=== PATIENT | male | born 1950 | race Caucasian/White ===

== ENCOUNTER 2019-02-12 15:25 | Emergency (ER) | payer MEDICARE ==
[2019-02-12 15:44] VITALS: BP 144/71
--- NOTE | 2019-02-12 16:13 | UC ---
Skin Complaint HPI - HPI Summary HPI Summary: 68 yo male had had a red area on his right calf that has progressively increased in size x weeks Inintially thought it was an insect bite no itching Yesterday he was seen by his primary care provider and started on augmentin for cellulitis This AM he developed fever and chills (Tmax 100.4) He felt very tired and took a long nap this AM which is uncommon for him no confusion no n/v slight muscle aches no CABRERA no CP or SOB no prior hx of skin infection /MRSA - History of Current Complaint Chief Complaint: UCSkin Time Seen by Provider: 02/12/19 15:30 Stated Complaint: FEVER, TIRED, CELLULITIS Hx Obtained From: Patient Onset/Duration: Gradual Onset Skin Exposure Onset/Duration: Weeks Ago Timing: Constant Onset Severity: Mild Current Severity: Moderate Pain Intensity: 3 Pain Scale Used: 0-10 Numeric Location: Discrete Character: Swelling, Redness, Painful Aggravating Factor(s): Touch Alleviating Factor(s): Nothing Associated Signs & Symptoms: Positive: Fever - This AM only, Chills - This AM only, Tenderness. Negative: Nausea, Vomiting, Numbness, Thirst, Diaphoresis, Weakness, Pallor, Shivering, Difficulty Breathing, Cough, Wheezing, Chest Pain, Hoarseness, Throat Tightening, Rash, Abdominal Pain, Lightheadedness, Syncope, Drainage, Bruising, Red Streaks, Joint Swelling - Allergy/Home Medications Allergies/Adverse Reactions: Allergies Allergy/AdvReac Type Severity Reaction Status Date / Time No Known Allergies Allergy Verified 02/12/19 15:44 Home Medications: Home Medications Amlodipine Besylate [Norvasc] 5 mg PO DAILY 02/12/19 [History Confirmed 02/12/19 ] Amoxicillin/Clavulanate TAB* [Augmentin TAB 875*] 875 mg PO Q12H 02/12/19 [ History Confirmed 02/12/19] Cholecalciferol (Vitamin D3) [Vitamin D3] 5,000 units PO DAILY 02/12/19 [ History Confirmed 02/12/19] Cyanocobalamin (Vitamin B-12) [Vitamin B12] 5,000 mg PO DAILY 02/12/19 [History Confirmed 02/12/19] Hydrochlorothiazide TAB* [Hydrodiuril TAB*] 12.5 mg PO DAILY 02/12/19 [History Confirmed 02/12/19] Triamcinolone 0.1% CREAM (NF) [Kenalog 0.1% Cream (NF)] 1 applic TOPICAL BID [History Confirmed 02/12/19] PMH/Surg Hx/FS Hx/Imm Hx Previously Healthy: Yes Cardiovascular History: Hypertension - Surgical History Surgical History: Yes Surgery Procedure, Year, and Place: knee surgery - Family History Known Family History: Positive: Hypertension - Social History Alcohol Use: Daily Substance Use Type: None Smoking Status (MU): Never Smoked Tobacco Review of Systems All Other Systems Reviewed And Are Negative: Yes Constitutional: Positive: Fever - Today, Chills - Today, Fatigue - Today Skin: Positive: Negative Eyes: Positive: Negative ENT: Positive: Negative Respiratory: Positive: Negative Cardiovascular: Positive: Negative Gastrointestinal: Positive: Negative Genitourinary: Positive: Negative Motor: Positive: Negative Neurovascular: Positive: Negative Musculoskeletal: Positive: Edema Neurological: Positive: Negative Psychological: Positive: Negative Is Patient Immunocompromised?: Yes Physical Exam Triage Information Reviewed: Yes Appearance: Well-Appearing, No Pain Distress, Well-Nourished Vital Signs: Initial Vital Signs Temp 99.2 F 02/12/19 15:39 Pulse 57 02/12/19 15:39 Resp 18 02/12/19 15:39 BP 144/71 02/12/19 15:39 Pulse Ox 98 02/12/19 15:39 Eyes: Positive: Conjunctiva Clear ENT: Positive: Hearing grossly normal. Negative: Nasal congestion, Nasal drainage, Trismus, Muffled voice Dental: Negative: Abscess @ Neck: Positive: Supple Respiratory: Positive: Lungs clear, Normal breath sounds, No respiratory distress, No accessory muscle use Cardiovascular: Positive: RRR. Negative: Tachycardia Musculoskeletal: Positive: ROM Intact, Edema @ Neurological: Positive: Alert Psychological Exam: Normal Skin Exam: Other - see image Images Front/Back of Body, Lg (Sauk): 1 - about 12 cm x 12 cm area tense and swollen, warm, not fluctuant, not pointing Diagnostics - Radiology No standard instances Radiology Interpretation Completed By: Radiologist Summary of Radiographic Findings: soft tissue ultrasound: NO EVIDENCE FOR ABSCESS Course/Dx - Course Course Of Treatment: because of degree of induration I will add MRSA coverage - Diagnoses Provider Diagnosis: Cellulitis of right lower extremity without foot Discharge - Sign-Out/Discharge Documenting (check all that apply): Patient Departure All imaging exams completed and their final reports reviewed: Yes - Discharge Plan Condition: Stable Disposition: HOME Prescriptions: Sulfamethox/Trimethoprim DS* [Bactrim DS 800/160 TAB*] 1 tab PO BID #14 tab Patient Education Materials: Cellulitis (ED) Referrals: Gayathri Ray MD [Primary Care Provider] - 3 Days Additional Instructions: Rest elevate warm compresses TO ER FOR NEW OR WORSENING SYMPTOMS IF YOU ARE STILL FEBRILE IN 24 hours go to the ER continue augmentin we will start a second antibiotic If not improving within 24 hours you may need admission for IV antibiotics soft tissue ultrasound report: NO EVIDENCE FOR ABSCESS - Billing Disposition and Condition Condition: STABLE Disposition: Home
[2019-02-12] MEDS ORDERED: Sulfamethox/Trimethoprim DS 800/160* TAB PO ONE (16:33)
[2019-02-13 14:15] LABS: Hematocrit 43 % (42-52); Hemoglobin 14.4 g/dL (14.0-18.0); Mean Corpuscular HGB Conc 34 g/dL (31-36); Mean Corpuscular Hemoglobin 33 pg (27-31); Mean Corpuscular Volume 97 fL (80-94); Mean Platelet Volume 9.2 fL (7.4-10.4); Platelet Count 207 10^3/uL (150-450); Red Blood Count 4.41 10^6 /uL (4.18-5.48); Red Cell Distribution Width 13 % (10-15); White Blood Count 6.4 10^3/uL (3.5-10.8)
[2019-02-13 15:00] LABS: BUN/Creatinine Ratio 13.3 (8-20); Calcium 9.2 mg/dL (8.6-10.3); EGFR African American 91.5 (>60); EGFR Non-African American 75.6 (>60)
[2019-02-13 15:02] LABS: ABS Eosinophils 0.2 10^3/ul (0-0.6); ABS Lymphocytes 0.7 10^3/ul (1.0-4.8); ABS Monocytes 0.9 10^3/ul (0-0.8); ABS Neutrophils 4.5 10^3/ul (1.5-7.7); Eosinophil % 2.9 %; Lymphocyte % 11.1 %; Nucleated Red Blood Cells % 0.1
--- NOTE | 2019-02-13 17:29 | UC ---
- Progress Note Progress Note: Patient evaluated and diagnosed with cellulitis of leg. CBC and BMP results reviewed. CBC stable however BMP shows a mild hyponatremia with sodium of 132 and hyperkalemia of 6.0. Previous k+ 3.2. With an elevated k+ with no underlying pathology patient should go to the ED for a redraw of the K+ due to the increased risk of arrythmia. Nursing to notify patient. Course/Dx - Diagnoses Provider Diagnoses: Cellulitis of right lower extremity without foot Discharge - Sign-Out/Discharge Documenting (check all that apply): Post-Discharge Follow Up All imaging exams completed and their final reports reviewed: Yes - Discharge Plan Condition: Stable Disposition: HOME Prescriptions: Sulfamethox/Trimethoprim DS* [Bactrim DS 800/160 TAB*] 1 tab PO BID #14 tab Patient Education Materials: Cellulitis (ED) Referrals: Gayathri Ray MD [Primary Care Provider] - 3 Days Additional Instructions: Rest elevate warm compresses TO ER FOR NEW OR WORSENING SYMPTOMS IF YOU ARE STILL FEBRILE IN 24 hours go to the ER continue augmentin we will start a second antibiotic If not improving within 24 hours you may need admission for IV antibiotics soft tissue ultrasound report: NO EVIDENCE FOR ABSCESS - Billing Disposition and Condition Condition: STABLE Disposition: Home - Attestation Statements Provider Attestation: I was available for consult. This patient was seen by the [facility]. The patient was not presented to, seen by, or examined by me. -Vega
== END 2019-02-12 17:30 | disposition home or self-care (01) ==
LOC: UCEAST 15:25
DX: L03.115 Cellulitis of right lower limb (principal); I10 Essential (primary) hypertension
CPT/HCPCS: 36415; 80048; 85025; 85060; 99212; A9270-GY; G0463

== ENCOUNTER 2019-02-13 18:54 | Emergency (ER) | payer MEDICARE ==
--- NOTE | 2019-02-13 19:41 | ED ---
Complex/Multi-Sys Presentation - HPI Summary HPI Summary: A 68 y/o male presents to [facility] with a chief complaint of having high potassium when [facility]. He notes that his right leg hurt and he was given abx when he saw his PCP two days ago, and was given Bactrim yesterday at [facility] and was diagnosed with cellulitis. At triage the patient rated his pain as a 0/10 in severity. The patient felt fatigued the past few days but feels better today. He denies taking potassium supplements or having kidney disease. He says that he takes medications for HTN. - History Of Current Complaint Chief Complaint: EDGeneral Time Seen by Provider: 02/13/19 19:29 Hx Obtained From: Patient Onset/Duration: Sudden Onset, Lasting Days, Still Present Timing: Constant Severity Currently: Mild Severity Initially: Mild Character: Unable To Describe Aggravating Factor(s): nothing Alleviating Factor(s): nothing Associated Signs And Symptoms: Positive: Other - positive: cellulitis of right leg. Negative: Fever - Allergies/Home Medications Allergies/Adverse Reactions: Allergies Allergy/AdvReac Type Severity Reaction Status Date / Time No Known Allergies Allergy Verified 02/13/19 18:59 PMH/Surg Hx/FS Hx/Imm Hx Endocrine/Hematology History: Denies: Hx Diabetes, Hx Systemic Lupus Erythematosus, Hx Thyroid Disease Cardiovascular History: Reports: Hx Hypertension - on meds Denies: Hx Congestive Heart Failure Respiratory History: Denies: Hx Asthma, Hx Chronic Obstructive Pulmonary Disease (COPD) GI History: Denies: Hx Ulcer History: Denies: Hx Dialysis, Hx Renal Disease Musculoskeletal History: Denies: Hx Rheumatoid Arthritis - Cancer History Hx Chemotherapy: No - Surgical History Surgery Procedure, Year, and Place: knee surgery Infectious Disease History: No Infectious Disease History: Denies: Hx Hepatitis, Hx Human Immunodeficiency Virus (HIV), Traveled Outside the [place] in Last 30 Days - Family History Known Family History: Positive: Hypertension - Social History Alcohol Use: None Substance Use Type: Reports: None Smoking Status (MU): Never Smoked Tobacco Review of Systems Positive: Fatigue - the past few days but feeling better today, Other - positive : high potassium. Negative: Fever Positive: Other - positive: cellulitis right leg All Other Systems Reviewed And Are Negative: Yes Physical Exam - Summary Physical Exam Summary: Appearance: Well-appearing, Well-nourished, lying in bed comfortable Skin: Warm, dry, Right leg area of cellulitis with some dark violaceous skin at the very proximal edge of cellulitis but no fluctuance or other signs of abscess formation. No lymphangitic streaking. Cellulitis extends from knee down to ankle and involves mostly the medial side of the leg. Eyes: sclera anicteric, no conjunctival pallor ENT: mucous membranes moist Neck: deferred Respiratory: No signs of respiratory distress Cardiovascular: Appears well perfused, pulses are nml Abdomen: deferred Musculoskeletal: Moving all 4 extremities without obvious discomfort Neurological: Awake and alert, mentation is normal, speech is fluent and appropriate Psychiatric: affect is normal, does not appear anxious or depressed Triage Information Reviewed: Yes Vital Signs On Initial Exam: Initial Vitals Temp Pulse Resp BP Pulse Ox 97.5 F 56 17 157/85 98 02/13/19 18:56 02/13/19 18:56 02/13/19 18:56 02/13/19 18:56 02/13/19 18:56 Vital Signs Reviewed: Yes Diagnostics - Vital Signs Vital Signs Temp Pulse Resp BP Pulse Ox 02/13/19 19:25 56 146/81 97 02/13/19 19:17 55 97 02/13/19 18:56 97.5 F 56 17 157/85 98 - Laboratory Result Diagrams: 02/13/19 19:43 Lab Statement: Any lab studies that have been ordered have been reviewed, and results considered in the medical decision making process. - EKG 19:51 Cardiac Rate: Bradycardia - 51 bpm EKG Rhythm: Sinus Bradycardia Summary of EKG Findings: EKG at 19:51 showed sinus bradycardia at 51 bpm, RBBB. Complex Multi-Symp Course/Dx Course Of Treatment: A 68 y/o male presents to [facility] with a chief complaint of having high potassium when he was seen at [facility] yesterday. He also reports cellulitis of his right leg. The physical exam revealed Right leg area of cellulitis with some dark violaceous skin at the very proximal edge of cellulitis but no fluctuance or other signs of abscess formation. No lymphangitic streaking. Cellulitis extends from knee down to ankle and involves mostly the medial side of the leg. Chemistries obtained. Potassium of 4.3. Creatinine of 1.32. EKG at 19:51 showed sinus bradycardia at 51 bpm, RBBB. The patient will be discharged and follow up with his PCP. The patient is agreeable with this plan. - Diagnoses Provider Diagnoses: Cellulitis, Acute renal insufficiency Discharge - Sign-Out/Discharge Documenting (check all that apply): Patient Departure - DC Patient Received Moderate/Deep Sedation with Procedure: No - Discharge Plan Condition: Good Disposition: HOME Patient Education Materials: Cellulitis (ED) Referrals: Gayathri Ray MD [Primary Care Provider] - 2 Days Additional Instructions: Your potassium level tonight is normal. However your creatinine level is slightly elevated. It could just be the effect of illness, but occasionally we see this with bactrim, the antibiotic prescribed yesterday. That said it would be unusual for bactrim to effect your kidney so quickly, so I don't think this is enough evidence to change antibiotics, as bactrim is the best choice for resistant bacteria in an outpatient setting. But it does mean you will have to be closely monitored over the next few days, both for the infection as well as making sure the kidney function does not worsen. - Billing Disposition and Condition Condition: GOOD Disposition: Home - Attestation Statements Document Initiated by Nicole: Yes Documenting Scribe: Cali Rodrigez Provider For Whom Nicole is Documenting (Include Credential): Davy Baker MD Scribe Attestation: I, Cali Rodrigez, scribed for Davy Baker MD on 02/14/19 at 0258. Scribe Documentation Reviewed: Yes Provider Attestation: The documentation as recorded by the Cali mendez accurately reflects the service I personally performed and the decisions made by me, Davy Baker MD Status of Scribe Document: Viewed
[2019-02-13 20:15] LABS: BUN/Creatinine Ratio 12.9 (8-20); Calcium 9.4 mg/dL (8.6-10.3); EGFR African American 64.9 (>60); EGFR Non-African American 53.6 (>60); Potassium 4.3 mmol/L (3.5-5.0)
[2019-02-13 21:04] VITALS: BP 168/91
== END 2019-02-13 21:03 | disposition home or self-care (01) ==
LOC: ED 18:54
DX: L03.115 Cellulitis of right lower limb (principal); N28.9 Disorder of kidney and ureter, unspecified; I10 Essential (primary) hypertension; Z79.899 Other long term (current) drug therapy
CPT/HCPCS: 36415; 80048; 93005; 99283

== ENCOUNTER 2022-10-06 14:27 | Inpatient (IN) ==
[2022-10-06 17:01] LABS: Hematocrit 36 % (42-52); Hemoglobin 11.8 g/dL (14.0-18.0); Mean Corpuscular HGB Conc 33 g/dL (31-36); Mean Corpuscular Hemoglobin 31 pg (27-31); Mean Corpuscular Volume 93 fL (80-94); Mean Platelet Volume 8.4 fL (7.4-10.4); Platelet Count 353 10^3/uL (150-450); Red Blood Count 3.86 10^6 /uL (4.18-5.48); Red Cell Distribution Width 14 % (10-15); White Blood Count 15.6 10^3/uL (3.5-10.8)
[2022-10-06 17:46] LABS: Albumin 3.6 g/dL (3.2-5.2); Albumin/Globulin Ratio 1.3 (1-3); C Reactive Protein 290.33 mg/L (<8.01); Calcium 8.8 mg/dL (8.6-10.3); Creatinine, Serum 0.91 mg/dL (0.67-1.17); Globulin 2.7 g/dL (2-4); Potassium 4.2 mmol/L (3.5-5.0); Total Bilirubin 1.9 mg/dL (0.2-1.0); Total Protein 6.3 g/dL (6.4-8.9); eGFR CKD-EPI 88.4 (>60)
[2022-10-06] MEDS ORDERED: Iohexol 300 (CONTRAST) 10 ML SDV IV ONE (17:57)
[2022-10-06 18:47] LABS: ABS Eosinophils 0.1 10^3/ul (0-0.6); ABS Neutrophils 12.5 10^3/ul (1.5-7.7); Eosinophil % 0.6 %; Lymphocyte % 6.6 %
[2022-10-06] MEDS ORDERED: Piperacillin/Tazobac ADVAN 3.375 GM in NS 0.9% 100 ml BAG 100 ML IV ONE (19:02)
[2022-10-06] MEDS ORDERED: cefTRIAXone 1 gm/50 mL D5W 1 GM/50 ML BAG IV ONE (19:15)
[2022-10-06] MEDS ORDERED: Acetaminophen IV 1 GM/100ML 1,000 MG/100 ML BAG IV ONE (20:16)
[2022-10-06 20:27] LABS: Urine Appearance Turbid; Urine Bilirubin Negative (Negative); Urine Blood Negative (Negative); Urine Color Amber; Urine Glucose Negative (Negative); Urine Ketones Negative (Negative); Urine Nitrite Negative (Negative); Urine Protein 3+(>=500 mg/dL) (Negative); Urine Specific Gravity 1.039 (1.002-1.030); Urine Urobilinogen Positive (Negative)
[2022-10-06] MEDS ORDERED: Lactated Ringers 1000 ml BAG 1,000 ML IV ONE (20:34)
[2022-10-06 20:58] LABS: Urine Bacteria Absent (Absent); Urine Red Blood Cell Absent (Absent); Urine White Blood Cell 3+(>20/hpf) (Absent)
[2022-10-07] MEDS ORDERED: Senna TAB 8.6 mg TAB PO PRN (00:23)
[2022-10-07] MEDS ORDERED: Magnesium Hydroxide LIQ 30 ML UDC PO PRN (00:23)
[2022-10-07] MEDS ORDERED: Polyethylene Glycol 3350 17 GM PACKET PO PRN (00:23)
[2022-10-07] MEDS ORDERED: Enoxaparin 40 MG/0.4 ML SYR SUBCUT ONE (00:25)
[2022-10-07] MEDS ORDERED: Lactated Ringers 1000 ml BAG 1,000 ML IV ONE (00:29)
[2022-10-07] MEDS ORDERED: Zosyn per Pharmacy NOTE FOLLOW UP SCH (01:00)
[2022-10-07] MEDS ORDERED: ZOSYN 3.375 GM x ONE DOSE over 30 miuntes IV (02:00)
[2022-10-07 07:25] LABS: Hematocrit 31 % (42-52); Hemoglobin 10.5 g/dL (14.0-18.0); Mean Corpuscular HGB Conc 34 g/dL (31-36); Mean Corpuscular Hemoglobin 32 pg (27-31); Mean Corpuscular Volume 93 fL (80-94); Mean Platelet Volume 8.2 fL (7.4-10.4); Platelet Count 330 10^3/uL (150-450); Red Blood Count 3.34 10^6 /uL (4.18-5.48); Red Cell Distribution Width 14 % (10-15)
[2022-10-07 07:29] LABS: ABS Eosinophils 0.1 10^3/ul (0-0.6); ABS Lymphocytes 0.9 10^3/ul (1.0-4.8); ABS Monocytes 1.8 10^3/ul (0-0.8); ABS Neutrophils 11.2 10^3/ul (1.5-7.7); Eosinophil % 0.5 %; Lymphocyte % 6.4 %
[2022-10-07] MEDS: Lactated Ringers 1000 ml BAG 1,000 ML IV SCH ×2 (07:45→20:37)
[2022-10-07] MEDS ORDERED: ZOSYN 3.375 GM Q8H per EXTENDED INFUSION IV SCH (08:00)
[2022-10-07 08:16] LABS: ALT 54 U/L (7-52); AST 56 U/L (13-39); Albumin 2.9 g/dL (3.2-5.2); Albumin/Globulin Ratio 1.1 (1-3); Alkaline Phosphatase 569 U/L (35-149); Anion Gap 8 mmol/L (2-11); Blood Urea Nitrogen 15 mg/dL (6-24); CO2 Carbon Dioxide 28 mmol/L (22-32); Calcium 8.4 mg/dL (8.6-10.3); Chloride 98 mmol/L (101-111); Creatinine, Serum 0.95 mg/dL (0.67-1.17); Globulin 2.7 g/dL (2-4); Glucose 111 mg/dL (70-100); Potassium 4.6 mmol/L (3.5-5.0); Sodium 134 mmol/L (135-145); Total Protein 5.6 g/dL (6.4-8.9)
[2022-10-07 08:40] LABS: Folate > 20.00 ng/mL (5.90-24.80); Vitamin B12 1431 pg/mL (180-914)
[2022-10-07 10:17] LABS: INR 1.4 (0.88-1.18)
[2022-10-07 11:05] LABS: PSA Screening Total < 0.008 ng/mL (0-4.000)
[2022-10-07] MEDS: Senna TAB 8.6 mg TAB PO SCH ×2 (12:22→21:54)
[2022-10-07] MEDS ORDERED: fentaNYL 100 mcg/2 ml 50 MCG/ML VIAL ONE (15:55)
[2022-10-07] MEDS: ZOSYN 3.375 GM Q8H per EXTENDED INFUSION IV SCH ×2 (17:53→23:58)
[2022-10-08 05:38] LABS: Hematocrit 32 % (42-52); Hemoglobin 10.7 g/dL (14.0-18.0); Mean Corpuscular HGB Conc 33 g/dL (31-36); Mean Corpuscular Hemoglobin 31 pg (27-31); Mean Corpuscular Volume 93 fL (80-94); Mean Platelet Volume 8.5 fL (7.4-10.4); Platelet Count 410 10^3/uL (150-450); Red Blood Count 3.49 10^6 /uL (4.18-5.48); Red Cell Distribution Width 14 % (10-15); White Blood Count 15.1 10^3/uL (3.5-10.8)
[2022-10-08 06:14] LABS: Albumin 2.9 g/dL (3.2-5.2); Calcium 8.3 mg/dL (8.6-10.3); Direct Bilirubin 1.1 mg/dL (0.03-0.18); Indirect Bilirubin 0.9 mg/dL (0.3-1.0); Potassium 4.4 mmol/L (3.5-5.0)
[2022-10-08 06:20] LABS: Creatinine, Serum 0.86 mg/dL (0.67-1.17); Globulin 2.8 g/dL (2-4); Total Protein 5.7 g/dL (6.4-8.9); eGFR CKD-EPI 90.9 (>60)
[2022-10-08] MEDS: Senna TAB 8.6 mg TAB PO SCH ×2 (10:02→22:34)
[2022-10-08] MEDS: Enoxaparin 40 MG/0.4 ML SYR SUBCUT SCH (10:02)
[2022-10-08] MEDS: ZOSYN 3.375 GM Q8H per EXTENDED INFUSION IV SCH ×2 (10:03→18:08)
[2022-10-09] MEDS: ZOSYN 3.375 GM Q8H per EXTENDED INFUSION IV SCH ×3 (01:17→17:53)
[2022-10-09 06:22] LABS: Albumin 2.7 g/dL (3.2-5.2); Calcium 7.9 mg/dL (8.6-10.3); Potassium 4.1 mmol/L (3.5-5.0); Total Bilirubin 1.3 mg/dL (0.2-1.0)
[2022-10-09 06:28] LABS: Creatinine, Serum 0.9 mg/dL (0.67-1.17); Globulin 2.6 g/dL (2-4); Total Protein 5.3 g/dL (6.4-8.9); eGFR CKD-EPI 89.6 (>60)
[2022-10-09 08:05] LABS: Hematocrit 29 % (42-52); Hemoglobin 9.8 g/dL (14.0-18.0); Mean Corpuscular HGB Conc 34 g/dL (31-36); Mean Corpuscular Hemoglobin 32 pg (27-31); Mean Corpuscular Volume 93 fL (80-94); Mean Platelet Volume 8.8 fL (7.4-10.4); Platelet Count 380 10^3/uL (150-450); Red Cell Distribution Width 14 % (10-15)
[2022-10-09 08:26] LABS: ABS Eosinophils 0.1 10^3/ul (0-0.6); ABS Lymphocytes 0.8 10^3/ul (1.0-4.8); ABS Monocytes 0.8 10^3/ul (0-0.8); ABS Neutrophils 7.2 10^3/ul (1.5-7.7); Eosinophil % 1.5 %; Lymphocyte % 8.9 %
[2022-10-09] MEDS: Enoxaparin 40 MG/0.4 ML SYR SUBCUT SCH (08:30)
[2022-10-09] MEDS: Senna TAB 8.6 mg TAB PO SCH ×2 (08:38→20:28)
[2022-10-09] MEDS ORDERED: cefTRIAXone 2 GM ADDV.VIAL 2 GM in NS 0.9% 100 ml BAG 100 ML IV ONE (16:00)
[2022-10-09] MEDS ORDERED: cefTRIAXone 2 gm/50 mL D5W 2 GM/50 ML BAG IV ONE (16:00)
[2022-10-10] MEDS: ZOSYN 3.375 GM Q8H per EXTENDED INFUSION IV SCH ×2 (01:34→08:53)
[2022-10-10] MEDS: Enoxaparin 40 MG/0.4 ML SYR SUBCUT SCH (09:12)
[2022-10-10] MEDS: Senna TAB 8.6 mg TAB PO SCH (09:12)
[2022-10-10 09:46] VITALS: BP 131/78
[2022-10-10 15:35] LABS: ALP Liver 1 358.1 IU/L (16.2-70.2); ALP Liver 1% 57.2 % (27.8-76.3); ALP Liver 2 195.9 IU/L (0.0-5.8); ALP Liver 2% 31.3 % (0.0-8.0); ALP Placental Not Present; Alkaline Phosphate 626 U/L (40 - 129)
== END 2022-10-10 12:55 | disposition home or self-care (01) | DRG 871 ==
LOC: ED 14:27 → SUATTDRO 23:27 → EDHOLD 23:27 → MED 10-07 13:49
PROVIDERS: ADMIT Hospitalist; ATTEND Student in an Organized Health Care Education/Training Program